=== PATIENT | female | born 1965 | race Caucasian/White ===

== ENCOUNTER 2023-12-02 17:42 | Emergency (ER) | payer OTHER, SELFPAY ==
[2023-12-02 17:53] VITALS: BP 139/84
[2023-12-02 18:16] LABS: % Basophils 0.3 % (0-2); % Eosinophils 0.4 % (0-6); % Immature Granulocytes 0.2 % (0-0.5); % Lymphocytes 19.9 % (20.5-51.1); % Monocytes 6.2 % (1.7-9.3); Absolute Lymphocytes 2.2 10^3/uL (1.2-3.4); Absolute Monocytes 0.7 10^3/uL (0.1-0.6); Absolute Neutrophils 8.2 10^3/uL (1.4-6.5); Hematocrit 38.9 % (37.0-47.0); Hemoglobin 13.8 g/dL (12.0-16.0); Mean Corp Hgb Conc. 35.5 g/dL (33.0-37.0); Mean Corpuscular Hgb 27.6 pg (27.0-31.0); Mean Corpuscular Volume 77.8 fL (81.0-99.0); Mean Platelet Volume 10.9 fL (7.4-10.4); Nucleated Red Blood Cells % 0 %; Platelet Count 236 10^3/uL (130-400); Red Cell Dist. Width 12.7 % (11.5-14.5); White Blood Cell Count 11.2 10^3/uL (4.8-10.8)
[2023-12-02 18:29] LABS: ALT (SGPT) 23 U/L (0-35); AST (SGOT) 21 U/L (14-36); Albumin 4.7 g/dl (3.5-5.0); Alkaline Phosphatase 72 U/L (38-126); Blood Urea Nitrogen 16 mg/dl (7-17); Calcium 10.3 mg/dl (8.4-10.2); Carbon Dioxide 25 mmol/L (22-30); Chloride 104 mmol/L (98-107); Glucose 112 mg/dl (70-99); Potassium 3.9 mmol/L (3.5-5.1); Sodium 140 mmol/L (135-145); Total Bilirubin 0.4 mg/dl (0.2-1.3); Total Protein 7.4 g/dl (6.3-8.2); eGFR > 60.00
[2023-12-02 18:39] LABS: Troponin I < 0.012 ng/ml
--- NOTE | 2023-12-02 19:58 | ED.GENMED ---
History of Present Illness
General
Chief Complaint: Chest Pain
Source: patient
Exam Limitations: none
Time Seen by Provider: 12/02/23 19:38
Nursing documentation reviewed up to this point in time: agreed with
History of Present Illness
History of Present Illness:
58-year-old female presenting to the emergency department today with concerns of chest tightness starting this morning has been somewhat ongoing throughout the day with some radiation to the left arm also noticed some sweating off-and-on denies
associated shortness of breath with her primary care doctor had an EKG that did not show concerning findings but was given 4 baby aspirin's and sent to the ER for further assessment. Denies any cardiac history any recent trauma surgery
immobilization leg swelling or estrogen product usage.
Review of Systems
Review of Systems
Allergies reviewed?: Yes
All Other Systems: ROS reviewed and negative except as documented in HPI and ROS
Phy Exam
Physical Exam
Physical Exam:
GENERAL: Alert , in no apparent distress
EYE: pupils equal and reactive
NECK: Supple, no significant adenopathy.
ENT: o/p clr, mmm.
CARDIAC: Regular rate and rhythm .
LUNGS: Clear breath sounds bilaterally, no acute respiratory distress, no wheezes/rales/rhonchi
ABDOMEN: Soft, without focal tenderness, no r/g, no cvat
NEUROLOGICAL: Alert and oriented, no focal neuro deficits
SKIN: Warm and dry, skin intact.
MUSCULOSKELETAL: No edema, well perfused.
PSYCH: Normal and appropriate interaction.
Scores
Heart Score for Chest Pain Patients
STEMI patient?: No
History: Slightly or Non-Suspicious
ECG: Normal
Age: >/= 65 years
Risk Factors: No Risk Factors
Troponin: </= Normal Limit
Heart Score for Chest Pain Patients: 2
Heart Score Risk: 2.5% MACE over next 6 weeks
Course
Orders/Labs/Results
Orders:
Orders
12/02/23 17:45
Electrocardiogram (*1) Urgent
Reason for Study: Chest Pain
EKG- Treatment ONCE
12/02/23 18:07
Complete Blood Count/With Diff Urgent
Comprehensive Metabolic Panel Urgent
Troponin I Urgent
12/02/23 19:38
Chest [CR Chest - 2 Views ] Urgent
Comment:
Reason For Exam: cp
12/02/23 20:45
EKG [Electrocardiogram (*1)] Urgent
Reason for Study: Chest Pain
EKG- Treatment ONCE
12/02/23 20:59
Troponin I Urgent
Abnormal Lab Results
12/02/23
18:07
WBC 11.2 H 10^3/uL
(4.8-10.8)
MCV 77.8 L fL
(81.0-99.0)
MPV 10.9 H fL
(7.4-10.4)
Absolute Neuts (auto) 8.2 H 10^3/uL
(1.4-6.5)
Absolute Monos (auto) 0.7 H 10^3/uL
(0.1-0.6)
Lymphocytes % 19.9 L %
(20.5-51.1)
Glucose 112 H mg/dl
(70-99)
Calcium 10.3 H mg/dl
(8.4-10.2)
12/02/23 18:07
12/02/23 18:07
Vital Signs
Initial and Last Documented VS:
Initial Vital Signs
Temp Pulse Resp BP Pulse Ox
97.9 F 88 20 139/84 95
12/02/23 17:53 12/02/23 17:53 12/02/23 17:53 12/02/23 17:53 12/02/23 17:53
Last Documented Vital Signs
Temp Pulse Resp BP Pulse Ox
97.9 F 69 18 154/81 98
12/02/23 17:53 12/02/23 21:32 12/02/23 20:17 12/02/23 21:32 12/02/23 21:32
MDM/Problems Addressed
MDM/Problems Addressed:
58-year-old female presenting to the emergency department today with concerns of chest discomfort described as a tightness with radiation to left arm. Seem to improve after receiving 4 baby aspirin prior to arrival after she was seen at the primary
care's office. Vital signs normal upon arrival labs showing slight white count of 11.2 otherwise no fever here remainder of labs unremarkable troponin negative EKG with nonspecific T wave flattening but no obvious signs of ischemia. Repeated EKG
without acute changes second troponin level at 3 hours negative. 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 Return precautions given.
*Critical Care Note
Total Time (30-74mins, 75-104mins- exclusive of procedures): Not Applicable
ED Attending Note
-
Portions of this chart may have been created with voice recognition software.� Occasional wrong word or��sound alike� substitutions may have occurred due to the inherent limitations of voice recognition software.
Discharge Plan
Departure
Patient Disposition: Home (Routine Discharge)
Date of Disposition: 12/02/23
Time of Disposition: 21:39
Patient with high blood pressure during this ER visit?: No
Condition: Good
Covid-19: Not Applicable
Discharge Problem:
Chest pain
Instructions: Chest Pain NON-[facility] Sluice Tender Follow Up
Referrals:
Raul Ford MD [Family Provider] -
Activity Restrictions/Additional Instructions:
You came to the emergency department today with concerns of chest discomfort. Here your assessment was reassuring. Please follow closely with your database programmer analyst within 1 to 2 weeks. Return to the emergency department for any worsening, new or
concerning symptoms.
Interventions
Interventions:
*Risk Screen - Suicide Last Done: 12/02/23 17:53
*General Assessment Last Done: 12/02/23 17:53
*Neglect/Abuse Screening Last Done: 12/02/23 17:53
ED- Cardiac Assessment Last Done: 12/02/23 20:21
Discharge Date and Time
Print Language: FIJIAN
[2023-12-02 20:17] VITALS: BP 155/80
[2023-12-02 21:14] VITALS: BP 154/81
[2023-12-02 21:32] VITALS: BP 154/81
[2023-12-02 21:33] LABS: Troponin I < 0.012 ng/ml
== END 2023-12-02 21:57 | disposition home or self-care (01) ==
LOC: EMR 17:42
PROVIDERS: Emergency Medicine; Physician Assistant; EMERGENCY PHYSICIAN Student in an Organized Health Care Education/Training Program; FAMILY PHYSICIAN Internal Medicine
DX: R07.89 Other chest pain (principal); M79.602 Pain in left arm; R20.0 Anesthesia of skin; R61 Generalized hyperhidrosis; Z91.048 Other nonmedicinal substance allergy status
CPT/HCPCS: 99284; 71046; 80053; 84484; 85025; 93005